=== PATIENT | female | born 1985 | race Caucasian/White ===

== ENCOUNTER 2016-07-25 13:53 | Outpatient (CLI) | payer BC ==
--- NOTE | 2016-07-25 16:28 | DIAGNOSTIC IMAGING REPORT ---
PROCEDURE: US OB LIMITED INDICATION: PRESENTATION ONLY TECHNIQUE: Transabdominal tesfaye scale and color Doppler imaging was obtained of the 30-oqdl-9-day gestation. COMPARISON: 05/14/2016 FINDINGS: Single live intrauterine is in vertex presentation. Regular heart rate at 132 beats per minute. Placenta is anterior and has a normal appearance without previa or abruption. The cervix is not well seen, shadowed by the head. Amniotic fluid index is 10.8 cm, normal. IMPRESSION: 1. Vertex presentation of a single live fetus.
--- NOTE | 2016-07-25 16:28 | DIAGNOSTIC IMAGING REPORT ---
PROCEDURE: US OB LIMITED INDICATION: PRESENTATION ONLY TECHNIQUE: Transabdominal tesfaye scale and color Doppler imaging was obtained of the 19-gkgk-5-day gestation. COMPARISON: 05/14/2016 FINDINGS: Single live intrauterine is in vertex presentation. Regular heart rate at 132 beats per minute. Placenta is anterior and has a normal appearance without previa or abruption. The cervix is not well seen, shadowed by the head. Amniotic fluid index is 10.8 cm, normal. IMPRESSION: 1. Vertex presentation of a single live fetus.
== END 2016-07-25 23:00 ==
LOC: US SRH 13:53
DX: O32.2XX0 Maternal care for transverse and oblique lie, not applicable or unspecified (principal); Z3A.00 Weeks of gestation of pregnancy not specified